=== PATIENT | male | born 1975 | race Caucasian/White ===

== ENCOUNTER 2017-02-12 08:40 | Emergency (ER) | payer SELFPAY ==
[~2017-02-12] VITALS: Ht 160 cm; Wt 78.0 kg
[2017-02-12 08:42] VITALS: Ht 160 cm; Wt 78.0 kg
[2017-02-12] MEDS ORDERED: ERYTOPOI LEFT EYE (09:06)
[2017-02-12] MEDS ORDERED: LORA-186 PO (09:06)
--- NOTE | 2017-02-12 09:13 | ERD ---
ER Documentation Chief Complaint Date/Time DATE: 02/12/17 TIME: 09:10 Chief Complaint LEFT EYELD SWELLING,ITCHING HPI 41-year-old male presenting to the emergency department complaining of left upper eyelid swelling for the past day. Patient states that it started last night and when he woke up it was worse. Patient states that it is itchy with mild tenderness. He denies any vision changes, crusting in the eyes. He denies foreign body. Patient does not wear any contacts ROS All systems reviewed and are negative except as per history of present illness. Medications Home Meds Active Scripts Erythromycin* (Erythromycin* Ophthalmic) 1 Applic Oint, 1 APPLIC LEFT EYE QID for 7 Days, EA Prov:KIKI SMART PA-C 02/12/17 Loratadine* (Claritin*) 10 Mg Tablet, 10 MG PO DAILY, #30 TAB Prov:KIKI SMART PA-C 02/12/17 PMhx/Soc Medical and Surgical Hx: pt denies Medical Hx, pt denies Surgical Hx Hx Alcohol Use: Yes Hx Substance Use: No Hx Tobacco Use: No Smoking Status: Never smoker Physical Exam Vitals Vital Signs Date Time Temp Pulse Resp B/P Pulse Ox O2 Delivery O2 Flow Rate FiO2 02/12/17 08:42 97.8 72 18 131/81 99 Physical Exam General: WD/WN, in no apparent distress, non-toxic appearing HENT: NC/AT EYES: Conjunctiva normal, no icterus Extraocular muscles intact, pupils equal and reactive to light with consensual response Left upper eyelid swelling with mild erythema Negative Flash test NECK: Supple; no LAD PULM: Normal labored breathing CV: RRR Good capillary refill GI: Non-distended, no guarding BACK: No masses EXT: No clubbing, cyanosis, or edema NEURO: Moves on all fours SKIN: intact PSYCH: Normal mood Procedures/MDM This is a 41-year-old male presenting to the emergency department with left upper eyelid swelling and itchiness most consistent with blepharitis. There was no evidence of periorbital or orbital cellulitis. No evidence of corneal abrasion, conjunctivitis or uveitis. Visual acuity was within normal limits. I discussed with patient to do warm compresses of the left upper eyelid. DISPOSITION: Stable. Prescription Claritin and erythromycin ointment given. Discussed to return to the ER if condition worsens or not improving as expected. Patient understood and agreed with this plan. Departure Diagnosis: Primary Impression: Blepharitis Condition: Stable Patient Instructions: What Is Blepharitis?, Treating Blepharitis: Self-Care, Treating Blepharitis: Medication and Follow-Up Referrals: [facility] Hours: Mon - Fri 9:00 AM - 5:00 PM Additional Instructions: FOLLOW UP WITH YOUR PRIMARY CARE PHYSICIAN TOMORROW.Return to this facility if you are not improving as expected. Take all medicines as directed. Return to this facility if you are not improving as expected. KIKI SMART PA-C Feb 12, 2017 09:13
== END 2017-02-12 09:19 | disposition home or self-care (01) ==
LOC: FTE 08:40
DX: H01.004 Unspecified blepharitis left upper eyelid (principal)
CPT/HCPCS: 99283